=== PATIENT | female | born 1945 | race Caucasian/White ===

== ENCOUNTER → 2017-07-16 | Outpatient (CLI) | payer OTHER | LOC: RAD 06:39 | DX: Z12.31 Encounter for screening mammogram for malignant neoplasm of breast (principal); M85.88 Other specified disorders of bone density and structure, other site ==

== ENCOUNTER → 2017-08-09 | Outpatient (CLI) | payer OTHER | LOC: RAD 02:31 | DX: N60.01 Solitary cyst of right breast (principal); N60.02 Solitary cyst of left breast ==